=== PATIENT | female | born 1955 | race Caucasian/White ===

== ENCOUNTER 2022-11-22 19:00 | Outpatient (CLI) | payer OTHER | END 2022-11-22 19:01 | disposition home or self-care (01) | LOC: SLEEPLAB 19:00 | PROVIDERS: ATTEND Family Medicine | DX: G47.33 Obstructive sleep apnea (adult) (pediatric) (principal); I10 Essential (primary) hypertension; E66.9 Obesity, unspecified | CPT/HCPCS: 95810 ==

== ENCOUNTER 2023-01-31 19:30 | Outpatient (CLI) | payer OTHER | END 2023-01-31 19:31 | disposition home or self-care (01) | LOC: SLEEPLAB 19:30 | PROVIDERS: ATTEND Family Medicine | DX: G47.33 Obstructive sleep apnea (adult) (pediatric) (principal); E66.9 Obesity, unspecified; I10 Essential (primary) hypertension | CPT/HCPCS: 95811 ==

== ENCOUNTER 2024-03-02 15:16 | Observation (INO) | payer MEDICARE, OTHER ==
[~2024-03-02 15:16] MED LIST: Iopamidol 370 76% 100 ML VIAL ONE
[2024-03-02] MEDS ORDERED: diphenhydrAMINE 50 MG/ML VIAL ONE (16:03)
[2024-03-02] MEDS ORDERED: methylPREDNISolone Sod Succ 40 MG VIAL ONE (16:03)
[2024-03-02] MEDS ORDERED: Famotidine/PF 20 mg/2ml Vial ONE (16:05)
[2024-03-02 16:07] LABS: #Basophils 0.06 10x3/uL (0.0-0.2); %Basophils 0.6 % (0.0-1.0); %Eosinophils 0.6 % (0.0-10.0); %Lymphocytes 25.4 % (21.0-51.0); %Neutrophils 66.1 % (42.0-75.0); Hematocrit 37.4 % (36.0-47.0); Hemoglobin 12.6 g/dL (12.0-16.0); Mean Corpuscular HGB CONC 33.7 g/dL (32.0-36.0); Mean Corpuscular Hemoglobin 31.7 pg (27.0-31.0); Mean Corpuscular Volume 94.2 fL (78.0-98.0); Mean Platelet Volume 10.1 fL (7.4-10.4); Platelet Count 267 10x3/uL (130-400); RBC Distribution Width 12.9 % (11.5-14.5); Red Blood Cell (RBC) Count 3.97 mill/uL (4.20-5.40)
[2024-03-02 16:25] LABS: ALT (SGPT) 18 U/L (8-55); AST (SGOT) 16 U/L (5-34); Albumin 3.4 g/dL (3.4-4.8); Alkaline Phosphatase 54 U/L (40-110); Anion Gap 16 mmol/L (10-20); BUN (Urea Nitrogen) 13 mg/dL (9.8-20.1); Bilirubin, Total 0.3 mg/dL (0.2-1.2); Calc. Creatinine Clearance 0 mL/min (70-130); Calcium 9.1 mg/dL (7.8-10.44); Carbon Dioxide 22 mmol/L (23-31); Chloride 100 mmol/L (98-107); Estimated GFR 62; Glucose 123 mg/dL (80-115); Lipase 22 U/L (8-78); Potassium 3.4 mmol/L (3.5-5.1); Protein, Total 6.4 g/dL (5.8-8.1); Sodium 135 mmol/L (136-145)
[2024-03-02 16:29] LABS: Troponin I Less than 0.010 ng/mL (< 0.028)
[2024-03-02] MEDS ORDERED: Potassium Chloride 20 MEQ TAB ONE (17:29)
[2024-03-02] MEDS ORDERED: Methocarbamol 500 MG TAB ONE (18:15)
[2024-03-02 20:07] LABS: Troponin I Less than 0.010 ng/mL (< 0.028)
[2024-03-02] MEDS ORDERED: Nitroglycerin 0.4 MG TAB 1 EACH ONE (20:37)
[2024-03-02 20:59] VITALS: BMI 33.6
[2024-03-02] MEDS: Lidocaine 2% Viscous 10 mL, Alum & Magn 30 mL SSW SCH (21:58)
[2024-03-02] MEDS ORDERED: Albuterol 200 PUFF (6.7GM INHALER) INH PRN (22:37)
[2024-03-02] MEDS: traMADol HCl 50 MG TAB PO SCH ×2 (23:30→23:31)
[2024-03-02] MEDS: clonazePAM 1 MG TAB PO SCH (23:30)
[2024-03-02] MEDS: Acetaminophen 325 MG TAB PO PRN (23:31)
[2024-03-02] MEDS: Ondansetron ODT 4 MG TAB PO PRN (23:36)
[2024-03-02 23:37] LABS: Troponin I Less than 0.010 ng/mL (< 0.028)
[2024-03-03] MEDS: Methocarbamol 500 MG TAB PO SCH ×2 (00:13→11:28)
[2024-03-03 05:05] LABS: #Basophils Less than 0.03 10x3/uL (0.0-0.2); #Eosinphils Less than 0.03 10x3/uL (0.0-0.7); %Basophils 0.3 % (0.0-1.0); %Lymphocytes 14.8 % (21.0-51.0); %Monocytes 4.4 % (0.0-10.0); %Neutrophils 80.1 % (42.0-75.0); Hematocrit 34.4 % (36.0-47.0); Hemoglobin 11.5 g/dL (12.0-16.0); Mean Corpuscular HGB CONC 33.4 g/dL (32.0-36.0); Mean Corpuscular Volume 92.7 fL (78.0-98.0); Mean Platelet Volume 10.5 fL (7.4-10.4); Platelet Count 261 10x3/uL (130-400); RBC Distribution Width 13.2 % (11.5-14.5); Red Blood Cell (RBC) Count 3.71 mill/uL (4.20-5.40)
[2024-03-03 05:28] LABS: ALT (SGPT) 16 U/L (8-55); AST (SGOT) 13 U/L (5-34); Alkaline Phosphatase 52 U/L (40-110); Anion Gap 12 mmol/L (10-20); BUN (Urea Nitrogen) 14 mg/dL (9.8-20.1); Bilirubin, Total 0.2 mg/dL (0.2-1.2); Calc. Creatinine Clearance 99 mL/min (70-130); Carbon Dioxide 26 mmol/L (23-31); Chloride 104 mmol/L (98-107); Estimated GFR 76; Globulin 2.8 g/dL (2.4-3.5); Glucose 146 mg/dL (80-115); Potassium 4.6 mmol/L (3.5-5.1); Protein, Total 5.8 g/dL (5.8-8.1); Sodium 137 mmol/L (136-145)
[2024-03-03] MEDS ORDERED: Methocarbamol 500 MG TAB PO SCH (09:00)
[2024-03-03] MEDS ORDERED: Regadenoson 0.4 MG/5 ML SYRINGE ONE (10:02)
[2024-03-03] MEDS: Fluticasone Propionate Nasal Spray 16 gm Bottle NASAL SCH (11:25)
[2024-03-03] MEDS: NIFEdipine XL 60 MG ER.TAB PO SCH (11:27)
[2024-03-03] MEDS: Lisinopril 20 MG TAB PO SCH (11:27)
[2024-03-03] MEDS: CeleCOXIB 100 MG CAP PO PRN (11:28)
[2024-03-03] MEDS: Escitalopram Oxalate 20 mg Tablet PO SCH (11:28)
[2024-03-03] MEDS: clonazePAM 1 MG TAB PO SCH (11:29)
[2024-03-03] MEDS: Pantoprazole DR 40 MG TAB PO SCH (11:33)
[2024-03-03 12:36] VITALS: BP 166/91; TEMP 98
== END 2024-03-03 17:16 | disposition home or self-care (01) ==
LOC: ERS 15:16 → 2SW 19:29
PROVIDERS: ADMIT Family Medicine; ATTEND Family Medicine
PROC: B246ZZZ Ultrasonography of Right and Left Heart (ICD-10-PCS; principal; 2024-03-02)
DX: R07.9 Chest pain, unspecified (principal); E78.5 Hyperlipidemia, unspecified; F31.9 Bipolar disorder, unspecified; F41.1 Generalized anxiety disorder; I12.9 Hypertensive chronic kidney disease with stage 1 through stage 4 chronic kidney disease, or unspecified chronic kidney disease; N18.2 Chronic kidney disease, stage 2 (mild); J44.9 Chronic obstructive pulmonary disease, unspecified; G25.81 Restless legs syndrome; K25.9 Gastric ulcer, unspecified as acute or chronic, without hemorrhage or perforation; I25.10 Atherosclerotic heart disease of native coronary artery without angina pectoris; K21.9 Gastro-esophageal reflux disease without esophagitis; G47.33 Obstructive sleep apnea (adult) (pediatric); E66.9 Obesity, unspecified; Z91.041 Radiographic dye allergy status; Z88.5 Allergy status to narcotic agent; Z79.51 Long term (current) use of inhaled steroids; Z79.899 Other long term (current) drug therapy; Z90.49 Acquired absence of other specified parts of digestive tract; Z96.651 Presence of right artificial knee joint; Z77.22 Contact with and (suspected) exposure to environmental tobacco smoke (acute) (chronic)
CPT/HCPCS: 71045; 71275; 74174; 78452; 80053 ×2; 82962; 83690; 83880; 84484 ×2; 85025 ×2; 85379; 93005; 93017; 93306; 93971; 94760; 96374; 96375; 99285; A9502; J1200; J2785 ×2; J2919; J3490; Q0162; 36415; 36416; G0378; Q9967